=== PATIENT | female | born 1975 | race Two or more races ===

== ENCOUNTER 2019-04-20 05:46 | Day surgery (SDC) | payer OTHER ==
[~2019-04-20 05:46] MED LIST: BREO ELLIPTA I1 EACH IH; DICLOFENAC SODI75 MG PO; LASIX20 MG PO; LEVOCARNITINE330 MG PO; MAXIMUM D310000 UNIT PO; NABUMETONE750 MG PO; NORFLEX100MG PO; PHENTERMINE H37.5 M1 PO; PROVENTIL HFA6.7 GM IH; RIZATRIPTAN10 M1 PO; SINGULAIR 10MG10 MG PO; TOPROL XL25 M1 PO
== END 2019-04-20 14:45 | disposition home or self-care (01) ==
LOC: CIR.AMB 05:46
DX: M77.02 Medial epicondylitis, left elbow (principal); M77.12 Lateral epicondylitis, left elbow; G56.22 Lesion of ulnar nerve, left upper limb